=== PATIENT | male | born 1955 | race Two or more races ===

== ENCOUNTER 2018-07-19 03:56 | Emergency (ER) | payer BC, MEDICAID, OTHER, SELFPAY ==
[~2018-07-19] VITALS: Ht 160 cm; Wt 71.7 kg
--- NOTE | 2018-07-19 03:59 | NUR ---
ATTEMPTED TO CALL PT FROM LOBBY TO TRIAGE WITH NO ANSWER X 1
--- NOTE | 2018-07-19 04:05 | NUR ---
ATTEMPTED TO CALL PT FROM LOBBY TO TRIAGE X 2 WITH NO ANSWER.
--- NOTE | 2018-07-19 04:19 | NUR ---
PT AMBULATES TO ROOM FROM TRIAGE WITH STEADY GAIT.
--- NOTE | 2018-07-19 04:27 | NUR ---
FIRST CONTACT WITH PT. PT STATES THAT HE IS VOIDING SMALL AMOUNTS SINCE THIS MORNING. PT STATES PMH OF URINARY RETENTION WITH 2 SURGERIES TO TRY TO CORRECT THE ISSUE. PT'S AOX4. RESPS EVEN AND UNLABORED. BP/SPO2 MONITORS IN PLACE. CALL LIGHT WITHIN REACH. AWAITING EDMD ASSESSMENT AT THIS TIME.
--- NOTE | 2018-07-19 04:39 | NUR ---
PT PROVIDED URINAL. THIS RN WALKED TO LAB FOR UA.
[2018-07-19 05:06] LABS: CULTURE INDICATED? YES; MICROSCOPIC AUTO
--- NOTE | 2018-07-19 05:06 | NUR ---
THIS RN APPLIED VELIZ PER EDMD ORDER USING STERILE TECHNIQUE, APPROX 900MLS CONCENTRATED YELLOW URINE DRAINED. PT TOLERATED WELL. EDMD NOTIFIED.
[2018-07-19 05:07] VITALS: BP 151/85
[2018-07-19 05:10] LABS: ALBUMIN 3.5 g/dL (3.4-5.0); ANION GAP 8 mmol/L (5-15); CALCIUM 8.5 mg/dL (8.5-10.1); CHLORIDE 109 mmol/L (98-107); CREATININE 0.84 mg/dL (0.7-1.3)
[2018-07-19 05:11] LABS: BASOPHILS # (AUTO) 0.04 x10^3/uL (0-0.1); BASOPHILS % (AUTO) 1 % (0-1); EOSINOPHILS % (AUTO) 8 % (1-7); LYMPHOCYTES # (AUTO) 0.87 x10^3/uL (1-3.4); LYMPHOCYTES % (AUTO) 16 % (22-44); MD NO; MEAN CORPUSCULAR HEMOGLOBIN 27.3 pg (27.5-34.5); MEAN PLATELET VOLUME 9.1 fL (7.4-10.4); MONOCYTES # (AUTO) 0.45 x10^3/uL (0.2-0.8); MONOCYTES % (AUTO) 9 % (2-9); NEUTROPHILS # (AUTO) 3.54 x10^3/uL (1.8-6.8); NEUTROPHILS % (AUTO) 67 % (42-75); PLATELET COUNT 280 x10^3/uL (130-400); RED BLOOD COUNT 5.38 x10^6/uL (4.38-5.82); RED CELL DISTRIBUTION WIDTH 14.3 % (9.4-14.8)
--- NOTE | 2018-07-19 05:39 | NUR ---
LEG BAG APPLIED. PT EDUCATED PER LEG BAG.
--- NOTE | 2018-07-19 05:54 | NUR ---
PT GIVEN DC INSTRUCTIONS AND SCRIPT. PT EDUCATED REGARDING DC MEDICATION. PT'S AOX4. RESPS EVEN AND UNLABORED. PT AMB TO DC WITH STEADY GAIT. NO ACUTE DISTRESS AT DC.
== END 2018-07-19 05:55 | disposition home or self-care (01) ==
LOC: ED 05:12
DX: R33.9 Retention of urine, unspecified (principal)
CPT/HCPCS: 36415; 51702; 80048; 81001; 82040; 85025; 87086; 99284

== ENCOUNTER 2020-08-13 02:39 | Emergency (ER) | payer MEDICAID, MEDICARE ==
[~2020-08-13] VITALS: Ht 152.4 cm; Wt 69.0 kg
--- NOTE | 2020-08-13 02:43 | NUR ---
DIRECTOR BUSINESS INTELLIGENCE: PT [id number]
--- NOTE | 2020-08-13 04:35 | NUR ---
PT WALKED BACK TO ROOM AT THIS TIME BY RN, PT REPORTS NOT URINATING FOR "AN HOUR OR SO" TO THIS RN, REPORTS SLIGHT DISCOMFORT AND REPORTS PREFERRING TO STAND D/T BLADDER FULLNESS FEELING. AFTER PT PLACE IN ROOM PT BEGINS LOUDL MOANING AND WAILING REPORTING EXCRUCIATING BLADDER PAIN D/T RETENTION
[2020-08-13] MEDS ORDERED: LIDOCAINE 2%,20 ML JEL.PF.APP MM ONE (05:00)
--- NOTE | 2020-08-13 05:10 | NUR ---
VELIZ PLACED FOR PT COMFORT D/T ACUTE RETENTION. Patient is resting comfortably in bed. Bed in lowest, rails engaged, call light on lap. Vital Signs within normal limits. WCTM.
--- NOTE | 2020-08-13 05:59 | NUR ---
Patient given discharge instructions and they have confirmed that they understand the instructions. Patient ambulatory with steady gait. NAD, all questions answered appropriately, denies additional needs at this time. No personal belongings left in room after discharge. VELIZ CARE REVIEWED. LEG BAG PROVIDED
[2020-08-13 06:00] VITALS: BP 128/70
== END 2020-08-13 06:01 | disposition home or self-care (01) ==
LOC: ED 05:30
DX: N40.1 Benign prostatic hyperplasia with lower urinary tract symptoms (principal); R33.8 Other retention of urine
CPT/HCPCS: 51702; 99284